=== PATIENT | female | born 1995 | race Caucasian/White ===

== ENCOUNTER → 2016-08-16 | Outpatient (CLI) | payer BC ==
[~2016-08-16] MED LIST: BCPILLS PO; [UNRECOGNIZED DRUG - CODE] PO
--- NOTE | 2016-08-16 16:32 | DIAGNOSTIC IMAGING REPORT ---
RIGHT KNEE 1 OR 2 VIEWS ROUTINE CLINICAL HISTORY: Right knee pain COMPARISON: None. DISCUSSION: No fractures or dislocations are visualized. There are no erosive or destructive changes. There is no evidence for soft tissue swelling. IMPRESSION: Unremarkable conventional radiographic evaluation of the right knee. Electronically signed by: Don Bowers M.D. 08/16/2016 4:29 PM Dictated Date/Time: 08/16/2016 4:29 PM
--- NOTE | 2016-08-16 16:32 | DIAGNOSTIC IMAGING REPORT ---
RIGHT HIP UNILATERAL 2 VIEWS CLINICAL HISTORY: Right hip pain COMPARISON: None. DISCUSSION: No fractures or dislocations are visualized. There are no erosive or destructive changes. IMPRESSION: Normal conventional radiographic evaluation of the right hip Electronically signed by: Don Bowers M.D. 08/16/2016 4:30 PM Dictated Date/Time: 08/16/2016 4:29 PM
== END | disposition home or self-care (01) ==
LOC: C.RAD1850 16:07
PROVIDERS: ATTEND Family Medicine
DX: M25.551 Pain in right hip (principal); M76.30 Iliotibial band syndrome, unspecified leg; M25.561 Pain in right knee